=== PATIENT | female | born 1945 | race Caucasian/White ===

== ENCOUNTER 2021-02-08 13:05 | Observation (INO) ==
[2021-02-08] MEDS ORDERED: Ondansetron 4 MG/2 ML VIAL IVP PRN (17:33)
[2021-02-08] MEDS ORDERED: Perflutren Lipid Microsphere 1.3 ML in 0.9 % Sodium Chloride 8.7 ML IVP PRN (17:34)
[2021-02-08] MEDS ORDERED: *HR* Heparin 5,000 UNIT/ML VIAL IVP PRN ×2 (17:35)
[2021-02-08 19:55] LABS: Hematocrit 42.1 % (35.3-44.9); Hemoglobin 14.1 g/dL (11.5-15.4); Mean Corpuscular HGB Conc 33.5 g/dL (31.6-35.5); Mean Corpuscular Hemoglobin 30.7 pg (28.0-33.3); Mean Corpuscular Volume 91.7 fL (83.0-100.0); Mean Platelet Volume 10.2 fL (9.4-12.4); Platelet Count 289 K/mcL (140-400); Red Blood Count 4.59 M/mcL (3.82-4.97); White Blood Count 7.7 K/mcL (4.3-11.1)
[2021-02-08 20:04] LABS: Heparin anti-factor XA UFH 0.06 IU/mL (0.30-0.70); Prothrombin Time 11.8 Seconds (9.4-12.1)
[2021-02-08 20:16] LABS: BUN/Creatinine Ratio 16 (6-26); Blood Urea Nitrogen 14 mg/dL (8-23); Carbon Dioxide 24 mEq/L (23-29); Chloride 104 mEq/L (98-107); Glucose 132 mg/dL (70-105); Osmolality,Calculated 282 (280-300); Potassium 3.7 mEq/L (3.5-5.1); Sodium 135 mEq/L (136-145); eGFR For African Americans > 60 (> 60); eGFR For Non-African Americans > 60 (> 60)
[2021-02-08] MEDS: Heparin 25,000UNIT/250ML 1/2NS 25,000 UNIT/250 ML IV.SOLN IVC SCH (20:30)
[2021-02-08 20:33] LABS: Troponin I 1.39 ng/mL (< 0.04)
[2021-02-09 02:34] LABS: Basophils # 0.1 K/mcL (0.0-0.2); Basophils % 1.1 %; Eosinophils # 0.3 K/mcL (0.0-0.6); Eosinophils % 3.4 %; Hematocrit 42.1 % (35.3-44.9); Hemoglobin 14.4 g/dL (11.5-15.4); Immature Granulocytes % 0.4 % (0-4); Lymphocytes # 1.8 K/mcL (0.6-4.6); Lymphocytes % 21.5 %; Mean Corpuscular HGB Conc 34.2 g/dL (31.6-35.5); Mean Corpuscular Hemoglobin 31.1 pg (28.0-33.3); Mean Corpuscular Volume 90.9 fL (83.0-100.0); Monocytes # 1.1 K/mcL (0.0-1.3); Neutrophils # 5.1 K/mcL (1.6-8.9); Platelet Count 291 K/mcL (140-400); Red Blood Count 4.63 M/mcL (3.82-4.97); Red Cell Distribution Width 11.9 % (11.5-14.5); Segmented Neutrophils % 60.6 %; White Blood Count 8.4 K/mcL (4.3-11.1)
[2021-02-09] MEDS: Aspirin 81 MG TAB.CHEW PO SCH (09:08)
[2021-02-09] MEDS: Magnesium Oxide 400 MG TABLET PO SCH (09:08)
[2021-02-10 01:56] LABS: Hematocrit 40.6 % (35.3-44.9); Hemoglobin 13.6 g/dL (11.5-15.4); Mean Corpuscular HGB Conc 33.5 g/dL (31.6-35.5); Mean Corpuscular Hemoglobin 30.7 pg (28.0-33.3); Mean Corpuscular Volume 91.6 fL (83.0-100.0); Mean Platelet Volume 10.4 fL (9.4-12.4); Platelet Count 283 K/mcL (140-400); Red Blood Count 4.43 M/mcL (3.82-4.97); Red Cell Distribution Width 11.9 % (11.5-14.5); White Blood Count 6.9 K/mcL (4.3-11.1)
[2021-02-10] MEDS: Heparin 25,000UNIT/250ML 1/2NS 25,000 UNIT/250 ML IV.SOLN IVC SCH ×2 (07:19→10:15)
[2021-02-10] MEDS: Aspirin 81 MG TAB.CHEW PO SCH (07:22)
[2021-02-10] MEDS: Magnesium Oxide 400 MG TABLET PO SCH (07:23)
[2021-02-11 01:02] LABS: Hematocrit 39.9 % (35.3-44.9); Hemoglobin 13.6 g/dL (11.5-15.4); Mean Corpuscular HGB Conc 34.1 g/dL (31.6-35.5); Mean Corpuscular Hemoglobin 31.5 pg (28.0-33.3); Mean Corpuscular Volume 92.4 fL (83.0-100.0); Mean Platelet Volume 10.1 fL (9.4-12.4); Platelet Count 278 K/mcL (140-400); Red Blood Count 4.32 M/mcL (3.82-4.97); Red Cell Distribution Width 11.9 % (11.5-14.5); White Blood Count 7.2 K/mcL (4.3-11.1)
[2021-02-11 01:25] LABS: BUN/Creatinine Ratio 24 (6-26); Blood Urea Nitrogen 20 mg/dL (8-23); Carbon Dioxide 23 mEq/L (23-29); Chloride 108 mEq/L (98-107); Glucose 104 mg/dL (70-105); Osmolality,Calculated 287 (280-300); Potassium 4.3 mEq/L (3.5-5.1); Sodium 137 mEq/L (136-145); eGFR For African Americans > 60 (> 60); eGFR For Non-African Americans > 60 (> 60)
[2021-02-11 07:54] VITALS: TEMP 97.9
[2021-02-11] MEDS: Magnesium Oxide 400 MG TABLET PO SCH (09:04)
[2021-02-11] MEDS: Aspirin 81 MG TAB.CHEW PO SCH (09:04)
[2021-02-11] MEDS ORDERED: *HR* Midazolam HCl 2 MG/2 ML VIAL ONE (11:54)
[2021-02-11] MEDS ORDERED: *HR* Heparin 10,000 UNIT/10 ML VIAL ONE (11:55)
[2021-02-11] MEDS ORDERED: 0.9 % Sodium Chloride 2,000 ML ONE (11:55)
[2021-02-11] MEDS ORDERED: Heparin 1,000 UNITS/500 mL 500 ML ONE (11:55)
[2021-02-11] MEDS ORDERED: ISOVUE-370 200 ML INFUS..BTL ONE (11:55)
[2021-02-11] MEDS ORDERED: *HR* FentaNYL (PF) 100 MCG/2 ML VIAL ONE (11:55)
[2021-02-11] MEDS ORDERED: Nitroglycerin 1,000 MCG/5 ML VIAL IV ONE (11:55)
[2021-02-11 14:51] VITALS: O2SAT 100
[2021-02-11 14:52] VITALS: PULSE 66
[2021-02-11 15:13] VITALS: BP 106/66
== END 2021-02-11 15:22 | disposition home or self-care (01) ==
LOC: 2ANU → SUATTDRO 16:48
PROVIDERS: ADMIT Family Medicine; ATTEND Internal Medicine